=== PATIENT | male | born 1975 | race Hispanic/Latino ===

== ENCOUNTER 2017-10-02 07:44 | Day surgery (SDC) | payer OTHER ==
[2017-10-01 11:34] VITALS: BMI 26.6
--- NOTE | 2017-10-01 18:51 | HP ---
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 He describes numbness primarily in the median nerve distribution. He has had persistent symptoms at res t, restriction of activities, anti-inflammatory medications and splinting. Symptoms are now interfer ing with daily activities and work. PAST MEDICAL HISTORY: The patient is otherwise in good health. CURRENT MEDICATIONS: Normally takes no routine medications. ALLERGIES: PENICILLIN. PHYSICAL EXAMINATION: GENERAL: Reveals a healthy male. HEENT: Unremarkable. NECK: Supple. CHEST: Clear. HEART: Regular rate and rhythm. ABDOMEN: Soft, nontender. RECTAL/GENITAL: Exams are deferred. EXTREMITIES: wrist. There is no swelling. There is questionable slight atrophy of the left t henar eminence. There is pain with compression of the median nerve bilaterally, right greater than l eft. There is no definite focal motor deficit. There is a positive Tinel sign, right greater than l eft, and positive Phalen's test on the right, negative on the left. There is subjective numbness in the median nerve distribution and palpable distal pulses. LABORATORY AND X-RAY FINDINGS: Electrodiagnostic studies from by revealed mildly severe bi lateral carpal tunnel syndrome, right slightly greater than left. IMPRESSION: Bilateral carpal tunnel syndrome, right greater than left. PLAN: Endoscopic possible open right carpal tunnel release. He will eventually require staged left carpal tunnel release when he recovered from the right. The nature of the surgery, length of recover y, and potential complications such as infection, loss of motion, incomplete relief, nerve injury, re currence, and need for additional treatment or repeat surgery have been discussed in detail.
[2017-10-02] MEDS ORDERED: Clindamycin/D5W 900 mg/50 ml Premix Bag ONE (08:21)
[2017-10-02] MEDS ORDERED: Midazolam HCl 2 mg/2 ml Vial ONE ×2 (08:39→10:13)
[2017-10-02] MEDS ORDERED: Fentanyl 100 MCG/2 ML VIAL ONE (10:13)
[2017-10-02] MEDS ORDERED: HYDROcodone/Acetaminophen 5/325 mg Tablet ONE (12:26)
[2017-10-02] MEDS ORDERED: Dexamethasone 20 MG/5 ML VIAL ONE (13:27)
[2017-10-02] MEDS ORDERED: PROPOFOL 200 MG/20 ML VIAL ONE (13:27)
[2017-10-02] MEDS ORDERED: Ketorolac Tromethamine 30 MG/ML VIAL ONE (13:27)
--- NOTE | 2017-10-02 14:21 | OP ---
DATE OF PROCEDURE: 10/02/2017 SURGEON: Femi Ramsay M.D. ANESTHESIA: General. PREOPERATIVE DIAGNOSES: Right carpal tunnel syndrome. POSTOPERATIVE DIAGNOSIS: Right carpal tunnel syndrome. PROCEDURE: Right endoscopic carpal tunnel release. NARRATIVE REPORT: After satisfactory anesthesia was induced in supine position, the patient was prep ped and draped in routine manner. The right arm was exsanguinated with an Esmarch bandage, and the t ourniquet inflated up to 250 mmHg. A 2 cm transverse incision was made in the proximal wrist flexion crease, carried down to subcutaneous tissues. Bleeding points controlled with Bovie cautery. Using sharp and blunt dissection, a distally based flap in deep forearm fascia was developed and retracted distally. Palmaris longus tendon was retracted radially. The proximal edge of the deep forearm fas neida was split under direct visualization with small scissors to make sure there was complete division of the proximal edge of the deep fascia. No proximal impingement of the median nerve. Synovium fred vator was introduced beneath the transverse carpal ligament, the synovium cleaned from the undersurfa ce. Carpal tunnel dilators were inserted. The 3M TRENA scope, a carpal tunnel system was introduced beneath the transverse carpal ligament in line with the ring finger. The distal edge of the ligament was easily identified. It was then divided in a distal to proximal direction by pulling the trigger of the assembly, engaging the knife, and withdrawing the scope proximally. This was done in several stages to make sure there was complete division of the transverse carpal ligament which was document ed with the video printer. After withdrawing the scope, a carpal tunnel dilator could be inserted in to the carpal tunnel and there was markedly improved passage and subcutaneous position of the instrum ent. The scope was reintroduced into the carpal tunnel. There was wide separation of the 2 leaves o f the transverse carpal ligament. The tourniquet was released after 7 minutes. There was no excessi ve bleeding. The scope was withdrawn. The wound was thoroughly irrigated and closed with running harvey bcuticular 3-0 nylon. Sterile bulky compressive dressing was applied. The patient immobilized in a Velcro wrist splint. He was awakened and taken to recovery room in stable condition. There were no apparent intraoperative complications. The estimated blood loss was negligible. The patient will be discharged home in satisfactory condition. He was instructed on ice, elevation, and given written wound care instructions. He was given a prescription for [place] 5 for pain, 40 tabl ets and will be rechecked in my office in 10-14 days or sooner if there are any problems prior to harley t time.
== END 2017-10-02 13:00 | disposition home or self-care (01) ==
LOC: SDC 07:44
PROVIDERS: ATTEND Orthopaedic Surgery
PROC: 01N54ZZ Release Median Nerve, Percutaneous Endoscopic Approach (ICD-10-PCS; principal; 2017-10-02)
DX: G56.03 Carpal tunnel syndrome, bilateral upper limbs (principal); Z88.0 Allergy status to penicillin
CPT/HCPCS: J1100; J1885; J2250; J2704; J3010; J3490

== ENCOUNTER 2017-10-23 06:10 | Day surgery (SDC) | payer OTHER ==
--- NOTE | 2017-10-22 10:06 | HP ---
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 He underwent endosco pic right carpal tunnel release on 10/02/2017 and has had good results. He is readmitted at this [facility] for surgery on the left. PAST MEDICAL HISTORY: Please see the old chart. The patient is otherwise in good health. MEDICATIONS: He normally takes no routine medications. ALLERGIES: He is allergic to PENICILLIN. FAMILY HISTORY/SOCIAL HISTORY/REVIEW OF SYSTEMS: Otherwise unremarkable. PHYSICAL EXAMINATION: GENERAL: Reveals a healthy male. HEENT: Unremarkable. NECK: Supple. CHEST: Clear. HEART: Regular rate and rhythm. ABDOMEN: Soft, nontender. RECTAL/GENITAL: Deferred. EXTREMITIES: Pertinent findings are related to left wrist. There is no swelling. There is no point tenderness. There is full range of motion. There is a positive Tinel sign and positive Phalen's te st. Decreased sensation in median nerve distribution. Nerve conduction studies are positive for car pal tunnel syndrome. IMPRESSION: 1. Left carpal tunnel syndrome. 2. Status post right carpal tunnel release. PLAN: Endoscopic possible open left carpal tunnel release. The nature of the surgery, length of rec overy, and potential complications such as infection, loss of motion, incomplete relief, nerve injury , recurrence, and need for additional treatment or repeat surgery have been discussed in detail.
[2017-10-22 11:48] VITALS: BMI 25.8
[2017-10-23] MEDS ORDERED: Fentanyl 100 MCG/2 ML VIAL ONE (06:44)
[2017-10-23] MEDS ORDERED: Lidocaine 1% (PF) 30 ML VIAL ONE (06:45)
[2017-10-23] MEDS ORDERED: Clindamycin/D5W 900 mg/50 ml Premix Bag ONE (06:56)
[2017-10-23] MEDS ORDERED: Midazolam HCl 2 mg/2 ml Vial ONE (06:56)
--- NOTE | 2017-10-23 10:27 | OP ---
DATE OF PROCEDURE: 10/23/2017 SURGEON: Femi Ramsay M.D. ANESTHESIA: General. PREOPERATIVE DIAGNOSIS: Left carpal tunnel syndrome. POSTOPERATIVE DIAGNOSIS: Left carpal tunnel syndrome. PROCEDURE PERFORMED: Left endoscopic carpal tunnel release. NARRATIVE REPORT: After satisfactory anesthesia was induced in supine position, the patient was prep ped and draped in routine manner. The left arm was elevated, exsanguinated with an Esmarch bandage, and the tourniquet inflated to 250 mmHg. A 2 cm transverse incision was made in the proximal wrist f lexion crease, carried down to subcutaneous tissues. Bleeding points controlled with Bovie cautery. Using sharp and blunt dissection, a distally based flap at deep forearm fascia was developed and ret racted distally. Palmaris longus tendon was retracted radially. Proximal edge of the deep forearm f ascia was split under direct visualization with small scissors to make sure there was no proximal imp ingement of the median nerve. Synovium elevator was introduced beneath the transverse carpal ligamen t, and the synovium cleaned from the undersurface. Carpal tunnel dilators were inserted. The [employer] Age e endoscopic carpal tunnel system was introduced beneath the transverse carpal ligament in line with the ring finger. The distal edge of the ligament was easily identified and then divided in a distal to proximal direction by pulling the trigger of the assembly, engaging the knife, and withdrawing the scope proximally. This was done in several stages to make sure there was complete division of the t ransverse carpal ligament, which was documented with the video printer. After withdrawing the scope, a carpal tunnel dilator could be inserted into the carpal tunnel, and there was markedly improved pa ssage and subcutaneous position of the instrument. The scope was reinserted into the carpal tunnel. There was wide separation of the 2 leaves of the transverse carpal ligament. The tourniquet was rel eased after 5 minutes. There was no excessive bleeding and the scope was withdrawn. The wound was t hen thoroughly irrigated and closed with running subcuticular 3-0 nylon. Sterile dressing was applie d and the patient immobilized in a Velcro wrist splint. He was awaken and taken to the recovery room in stable condition. There were no apparent intraoperative complications. The estimated blood loss was negligible. The patient will be discharged home in satisfactory condition with ice, elevation, and given written wound care instructions. He has [place] 5 at home for pain. He will be rechecked in my office approxi mately 2 weeks or sooner for any problems prior to that time.
== END 2017-10-23 09:50 | disposition home or self-care (01) ==
LOC: SDC 06:10
PROVIDERS: ATTEND Orthopaedic Surgery
PROC: 01N54ZZ Release Median Nerve, Percutaneous Endoscopic Approach (ICD-10-PCS; principal; 2017-10-23)
DX: G56.02 Carpal tunnel syndrome, left upper limb (principal); Z88.0 Allergy status to penicillin
CPT/HCPCS: J2001; J2250; J3010; J3490